=== PATIENT | male | born 1980 | race Caucasian/White ===

== ENCOUNTER 2023-11-16 09:09 | Outpatient (CLI) | payer OTHER, SELFPAY | END 2023-11-16 09:10 | disposition home or self-care (01) | PROVIDERS: PCP Family Medicine; Visit Provider Family Medicine | DX: Z00.00 Encounter for general adult medical examination without abnormal findings (principal); R63.5 Abnormal weight gain; E55.9 Vitamin D deficiency, unspecified; E66.09 Other obesity due to excess calories | CPT/HCPCS: 80048; 80061; 82306; 84443 ==

== ENCOUNTER 2024-11-13 08:34 | Outpatient (CLI) | payer OTHER, SELFPAY | END 2024-11-13 08:35 | disposition home or self-care (01) | PROVIDERS: PCP Family Medicine; Visit Provider Family Medicine | DX: E55.9 Vitamin D deficiency, unspecified (principal); Z01.818 Encounter for other preprocedural examination; Z13.6 Encounter for screening for cardiovascular disorders | CPT/HCPCS: 80048; 80061; 85025 ==

== ENCOUNTER 2024-11-28 11:28 | Day surgery (SDC) | payer OTHER, SELFPAY ==
[2024-11-28] VITALS (12 sets, daily range): BP systolic 124–149; BP diastolic 82–108; PULSE 72–94; RESP 14–16; TEMP 36.2–36.6; O2SAT 95–98; BMI 27.3
[2024-11-28] MEDS: LACTATED RINGERS 1000 ML 1,000 ML 100 ML IV (11:40)
[2024-11-28] MEDS: SODIUM CHLORIDE 0.9 % (FLUSH) 10 ML SYRINGE IVF (11:51)
[2024-11-28] MEDS: OXYMETAZOLINE 0.05% NASAL SPRAY 2 SPRAY NOSTRIL-B (12:03)
[2024-11-28] MEDS: COCAINE HCL 4 % 4 ML SOLUTION NOSTRIL-B (13:15)
[2024-11-28] MEDS: MUPIROCIN 1 GM PACKET 1 APPLIC TOPICAL (13:25)
[2024-11-28] MEDS: AYR SALINE NASAL GEL 1 APPLIC NOSTRIL-B (13:26)
[2024-11-28] MEDS: BUPIVACAINE 0.5%/EPINEPHRINE 0.9 MG (30.9 ML) INJECTION (13:35)
--- NOTE | 2024-11-28 13:44 | P.ENTPROC_ITS ---
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 The nose was decongested. The McIvor mouth gag was inserted the tongue retracted forward. The membranous portion of the uvula was amputated. No sutures were placed and there was no bleeding. After regarding gloving attention was turned to the nose. The nose was injected. A right hemitransfixion incision was made. Left anterior posterior tunnels were created. Right anterior and posterior tunnels were created. The septum was quite tortuous. A vertical incision was made through the cartilage just anterior to the bone the posterior bony deflections were removed. The anterior septum had a large premaxillary wing deformity consisting of cartilage in bone. The cartilaginous portion was resected leaving the normal amount for dorsal and tip support. 2 pieces of bone return returned to intraseptal space. A stab incision was made in the anterior of the right inferior turbinate a tunn el created with a Soumya dissector. A conservative anterior submucous resection was performed the Coblation was used to cauterize and for hemostasis. This was repeated on the left side in identical fashion. Both turbinate bones were outfractured. The hemitransfixion was closed with 2 4-0 chromic sutures. Silastic stents were secured with 3-0 nylon and a Merocel pack was cut in half lengthwise coated in Bactroban and placed on either side of of the stents. The patient procedure well was taken recovery in satisfactory condition. Blood loss was 25 mL. Surgeon: Ke Hannah MD
--- NOTE | 2024-11-28 13:51 | P.ANES_ITS ---
Anesthesia Charges Start Date/Time Anesthesia Start Date: 11/28/24 Anesthesia Start Time: 13:03 Stop Date/Time Anesthesia Stop Date: 11/28/24 Anesthesia Stop Time: 13:50 Coding CPT Codes CPT Codes: ANESTH NOSE/SINUS SURGERY - 46746 ([id number]) P2 - PATIENT W/MILD SYST DISEASE, QK - PHYSICAL TRAINER 2-4 CNCRNT ANES PROC, QX - TRADE UNION SECRETARY SVC W/ MD MED DIRECTION
--- NOTE | 2024-11-28 13:51 | W.ANESCHARGE ---
Anesthesia Charges Start Date/Time Anesthesia Start Date: 11/28/24 Anesthesia Start Time: 13:03 Stop Date/Time Anesthesia Stop Date: 11/28/24 Anesthesia Stop Time: 13:50 Coding CPT Codes CPT Codes: ANESTH NOSE/SINUS SURGERY - 62729 ([id number]) P2 - PATIENT W/MILD SYST DISEASE, QK - BULB WEEDER 2-4 CNCRNT ANES PROC, QX - PILLOWCASE TURNER SVC W/ MD MED DIRECTION
--- NOTE | 2024-11-28 13:54 | P.ANES_ITS ---
Anesthesia Charges Start Date/Time Anesthesia Start Date: 11/28/24 Anesthesia Start Time: 13:03 Stop Date/Time Anesthesia Stop Date: 11/28/24 Anesthesia Stop Time: 13:50 Coding CPT Codes CPT Codes: ANESTH NOSE/SINUS SURGERY - 00442 ([id number]) QK - AIRLINE MANAGER 2-4 CNCRNT ANES PROC, QX - STORAGE CENTER MANAGER SVC W/ MD MED DIRECTION, P2 - PATIENT W/MILD SYST DISEASE
--- NOTE | 2024-11-28 13:54 | W.ANESCHARGE ---
Anesthesia Charges Start Date/Time Anesthesia Start Date: 11/28/24 Anesthesia Start Time: 13:03 Stop Date/Time Anesthesia Stop Date: 11/28/24 Anesthesia Stop Time: 13:50 Coding CPT Codes CPT Codes: ANESTH NOSE/SINUS SURGERY - 26601 ([id number]) QK - JAVA WEB ARCHITECT 2-4 CNCRNT ANES PROC, QX - CIGAR MAKING MACHINE SUPERVISOR SVC W/ MD MED DIRECTION, P2 - PATIENT W/MILD SYST DISEASE
== END 2024-11-28 15:22 | disposition home or self-care (01) ==
LOC: OR 11:29
PROVIDERS: PCP Family Medicine; Visit Provider Otolaryngology
PROC: (CPT 30520; principal; 2024-11-28 12:45)
PROC: (CPT 42140; 2024-11-28 12:45)
DX: J34.2 Deviated nasal septum (principal); J34.3 Hypertrophy of nasal turbinates; Q38.6 Other congenital malformations of mouth
CPT/HCPCS: 30520; 30140; 42140; 00160; A9270; J0330; J1100; J2250; J2405; J2704; J3010; J7120